=== PATIENT | female | born 2000 | race Caucasian/White ===

== ENCOUNTER 2018-09-20 21:24 | Observation (INO) | payer OTHER ==
[~2018-09-20] VITALS: Ht 172.7 cm; Wt 70.3 kg
[~2018-09-20 21:24] MED LIST changes: -ACYC-50 PO; -STEROID EYE DROPS; -SUMA100T33 PO
[2018-09-20] MEDS ORDERED: SUMA100T33 PO (21:38)
--- NOTE | 2018-09-20 21:39 | ER Report ---
History and Physical Time Seen By MD: 21:38 Hx. of Stated Complaint: 1 MIN TONIC CLONIC SEIZURE, PT ALERT AND ORIENTED, HAS HAD A BAD MIGRAINE SINCE WAKING UP TODAY HPI/ROS CHIEF COMPLAINT: seizure, headache HISTORY OF PRESENT ILLNESS: This is a 18 year old female. She had an episode while working tonight at the [employer] gym at the [facility]. She lost consciousness, fell and had about 1 minute of tonic-clonic movements. She awoke and knew she was at the [employer], but did not know what happened. She has had a headache all day. She described this as a typical migraine pattern. She took her Imitrex, but did not help. She has a history of migraines, but not frequent. This was worse than usual for her. She has had cold symptoms for a few weeks, with runny nose and cough, not worse today than the last few days. Denies shortness of breath. Denies fevers or chills. Denies headache. No loss of bladder or bowel control with the event and denies dysuria. Denies diarrhea. She does have some generalized weakness, which seems worse in both arms. No focal numbness or weakness. She denies vision changes today. She has been lightheaded/dizzy off and on today, worsened this evening. Allergies: Coded Allergies: amoxicillin (Verified Allergy, Intermediate, DIARRHEA/NAUSEA/HIVES, 10/11/17) clavulanic acid (Verified Allergy, Intermediate, DIARRHEA/NAUSEA/HIVES, 10/11/17) erythromycin base (Verified Allergy, Intermediate, DIARRHEA/NAUSEA, 10/11/17) sulfisoxazole (Verified Allergy, Intermediate, DIARRHEA/NAUSEA, 10/11/17) Home Meds Reported Medications [Steroid Eye Drops] No Conflict Check 09/21/18 Sumatriptan Succinate (SUMATRIPTAN SUCCINATE) 100 Mg Tablet, 100 MG PO ONCE 09/20/18 [Teva] No Conflict Check, 1 TAB PO QDAY 10/11/17 Discontinued Scripts Diclofenac Sodium (DICLOFENAC SODIUM) 75 Mg Tablet., 75 MG PO BID, #20 TAB Prov:BERTA BASHIR 10/11/17 Reviewed Nurses Notes: Yes Hx Substance Use Disorder: No Hx Alcohol Use: Yes (OCC) Constitutional Vital Sign - Last 24 Hours 09/20/18 09/20/18 09/20/1809/20/18 21:24 21:26 21:27 21:39 Temp 99.8 Pulse ??? 101 95 Resp 16 17 B/P (MAP) 169/118 (135) 169/118 Pulse Ox 95 94 O2 Delivery Room Air 09/20/18 09/20/18 09/20/18 09/20/18 21:40 21:54 21:57 21:58 Pulse ??? B/P (MAP) 144/103 (117) 150/107 (121) 150/108 (122) 09/20/18 09/20/18 09/20/18 09/20/18 21:59 22:02 22:03 22:04 Pulse 89 89 98 Resp 20 20 20 B/P (MAP) 156/112 (127) 150/107 (121) 150/108 (122) 156/112 (127) Pulse Ox 91 93 92 O2 Delivery Room Air Room Air Room Air 09/20/18 09/20/18 09/20/18 09/20/18 22:09 22:24 22:39 22:40 Pulse 93 ??? 96 Resp 10 11 B/P (MAP) 153/110 (124) Pulse Ox 91 92 09/20/18 09/20/18 09/20/18 09/20/18 22:54 23:00 23:09 23:20 Pulse 89 93 Resp 17 15 B/P (MAP) 147/116 (126) 152/101 (118) Pulse Ox 96 95 09/20/18 09/20/18 09/20/18 09/21/18 23:25 23:40 23:55 00:00 Pulse ??? 103 85 Resp 15 12 B/P (MAP) 149/95 (113) 131/62 (85) Pulse Ox 95 94 09/21/18 09/21/18 09/21/18 00:10 00:20 00:28 Temp 98.2 Pulse 85 Resp 12 B/P (MAP) 130/90 (103) Pulse Ox 94 Intake and Output 09/20/18 09/20/18 09/21/18 15:00 23:00 07:00 Intake Total 1000 ml Balance 1000 ml Physical Exam General Appearance: The patient is alert. No acute distress. Non-toxic in appearance. Eyes: Pupils are equal, round. Reactive to light. No pallor, injection or icterus. Extraocular movements are intact. ENT: Mucous membranes are moist. Normal oral mucosa. Posterior oropharynx has mild erythema, but no exudates or hypertrophy. Nasal mucosa with mild erythema and mucous. Normal tympanic membranes and canals. Neck: Supple and non tender. No lymphadenopathy. Respiratory: Lungs are clear to auscultation. Cardiovascular: Regular rate and rhythm. No murmurs, gallops or rubs. Normal capillary refill. Gastrointestinal: Abdomen is soft and non tender. Nondistended. Normal active bowel sounds. No costovertebral angle tenderness with percussion. Neurological: Alert and oriented x3. Cranial nerves II through XII show no acute deficits on my exam. No focal neurologic deficits in the extremities. Skin: Warm and dry. No rashes. Musculoskeletal: Extremities are nontender. No tenderness in palpation of the cervical, thoracic and lumbar spine. DIFFERENTIAL DIAGNOSIS: After history and physical exam, differential diagnosis was considered for headache, recent cold symptoms, and tonight an episode that sounds like syncope with convulsions, but cannot entirely rule out seizure. No history of seizures in the past. Could be migraine with syncope, but worry about the possibility of meningitis or bleeding. Medical Decision Making Data Points Result Diagram: 09/20/18211909/20/182119 Laboratory Hematology Test 09/20/18 21:20 09/20/18 21:54 09/20/18 23:46 Red Blood Count 5.54 M/uL (4.17-5.56) Mean Corpuscular Volume 89.6 fL (80.0-96.0) Mean Corpuscular Hemoglobin 30.8 pg (26.0-33.0) Mean Corpuscular Hemoglobin Concent 34.4 g/dL (32.0-36.0) Red Cell Distribution Width 12.6 % (11.5-14.5) Mean Platelet Volume 9.0 fL (7.2-11.1) Neutrophils (%) (Auto) 49.2 % (39.4-72.5) Lymphocytes (%) (Auto) 39.5 % (17.6-49.6) Monocytes (%) (Auto) 7.9 % (4.1-12.4) Eosinophils (%) (Auto) 2.3 % (0.4-6.7) Basophils (%) (Auto) 1.1 % (0.3-1.4) Nucleated RBC Relative Count (auto) 0.1 /100WBC Neutrophils # (Auto) 5.0 K/uL (2.0-7.4) Lymphocytes # (Auto) 4.0 K/uL (1.3-3.6) Monocytes # (Auto) 0.8 K/uL (0.3-1.0) Eosinophils # (Auto) 0.2 K/uL (0.0-0.5) Basophils # (Auto) 0.1 K/uL (0.0-0.1) Nucleated RBC Absolute Count (auto) 0.01 K/uL Erythrocyte Sedimentation Rate 7 mm/HOUR (0-20) Sodium Level 138 mmol/L (137-145) Potassium Level 3.8 mmol/L (3.5-5.0) Chloride Level 103 mmol/L (98-107) Carbon Dioxide Level 21 mmol/L (22-31) Blood Urea Nitrogen 12 mg/dl (7-18) Creatinine 1.00 mg/dl (0.52-1.04) Glomerular Filtration Rate Calc > 60.0 Random Glucose 122 mg/dl (75-110) Calcium Level 9.7 mg/dl (8.4-10.2) Total Bilirubin 0.3 mg/dl (0.2-1.3) Aspartate Amino Transf (AST/SGOT) 22 U/L (0-35) Alanine Aminotransferase (ALT/SGPT) 25 U/L (0-56) Alkaline Phosphatase 61 U/L (0-126) C-Reactive Protein < 0.5 mg/dl (<1.0) Total Protein 8.5 g/dl (6.3-8.2) Albumin 4.7 g/dl (3.5-5.0) Human Chorionic Gonadotropin, Qual Negative (NEGATIVE) Urine Color Straw Urine Clarity Clear Urine pH 7.0 pH (4.8-9.5) Urine Specific [place] 1.002 Urine Protein Negative mg/dL (NEGATIVE) Urine Glucose (UA) Negative mg/dL (NEGATIVE) Urine Ketones Negative mg/dL (NEGATIVE) Urine Blood Small (NEGATIVE) Urine Nitrite Negative (NEGATIVE) Urine Bilirubin Negative (NEGATIVE) Urine Urobilinogen Negative mg/dL (0.2-1.9) Urine Leukocyte Esterase Negative (NEGATIVE) Urine RBC 3 /HPF (0-2/HPF) Urine WBC 3 /HPF (0-5/HPF) Urine Squamous Epithelial Cells Many /LPF (</=FEW) Urine Bacteria Few /HPF (NONE-FEW) Urine Mucus None /HPF (NONE-FEW) Body Fluid WBC 11 Body Fluid RBC 321 CSF Appearance Clear (CLEAR) CSF Color Colorless (COLORLESS) CSF WBC 32 /mm3 (0-5) CSF RBC 411 /mm3 CSF Glucose 53 mg/dl CSF Total Protein 30 mg/dl (15-50) Haemophilus influenzae B Antigen Negative (NEGATIVE) Neisseria meningitidis A/Y Antigen Negative (NEGATIVE) Neisseria meningitidis C/W135 Ag Negative (NEGATIVE) N. meningitidis B/E.coli K1 Ag Negative (NEGATIVE) Group B Streptococcus Antigen Negative (NEGATIVE) Streptococcus pneumoniae Antigen Negative (NEGATIVE) Chemistry Test 09/20/18 21:20 09/20/18 21:54 09/20/18 23:46 White Blood Count 10.1 k/uL (4.5-11.0) Red Blood Count 5.54 M/uL (4.17-5.56) Hemoglobin 17.1 g/dL (12.0-16.0) Hematocrit 49.6 % (34.0-47.0) Mean Corpuscular Volume 89.6 fL (80.0-96.0) Mean Corpuscular Hemoglobin 30.8 pg (26.0-33.0) Mean Corpuscular Hemoglobin Concent 34.4 g/dL (32.0-36.0) Red Cell Distribution Width 12.6 % (11.5-14.5) Platelet Count 364 K/uL (150-450) Mean Platelet Volume 9.0 fL (7.2-11.1) Neutrophils (%) (Auto) 49.2 % (39.4-72.5) Lymphocytes (%) (Auto) 39.5 % (17.6-49.6) Monocytes (%) (Auto) 7.9 % (4.1-12.4) Eosinophils (%) (Auto) 2.3 % (0.4-6.7) Basophils (%) (Auto) 1.1 % (0.3-1.4) Nucleated RBC Relative Count (auto) 0.1 /100WBC Neutrophils # (Auto) 5.0 K/uL (2.0-7.4) Lymphocytes # (Auto) 4.0 K/uL (1.3-3.6) Monocytes # (Auto) 0.8 K/uL (0.3-1.0) Eosinophils # (Auto) 0.2 K/uL (0.0-0.5) Basophils # (Auto) 0.1 K/uL (0.0-0.1) Nucleated RBC Absolute Count (auto) 0.01 K/uL Erythrocyte Sedimentation Rate 7 mm/HOUR (0-20) Glomerular Filtration Rate Calc > 60.0 Calcium Level 9.7 mg/dl (8.4-10.2) Total Bilirubin 0.3 mg/dl (0.2-1.3) Aspartate Amino Transf (AST/SGOT) 22 U/L (0-35) Alanine Aminotransferase (ALT/SGPT) 25 U/L (0-56) Alkaline Phosphatase 61 U/L (0-126) C-Reactive Protein < 0.5 mg/dl (<1.0) Total Protein 8.5 g/dl (6.3-8.2) Albumin 4.7 g/dl (3.5-5.0) Human Chorionic Gonadotropin, Qual Negative (NEGATIVE) Urine Color Straw Urine Clarity Clear Urine pH 7.0 pH (4.8-9.5) Urine Specific [place] 1.002 Urine Protein Negative mg/dL (NEGATIVE) Urine Glucose (UA) Negative mg/dL (NEGATIVE) Urine Ketones Negative mg/dL (NEGATIVE) Urine Blood Small (NEGATIVE) Urine Nitrite Negative (NEGATIVE) Urine Bilirubin Negative (NEGATIVE) Urine Urobilinogen Negative mg/dL (0.2-1.9) Urine Leukocyte Esterase Negative (NEGATIVE) Urine RBC 3 /HPF (0-2/HPF) Urine WBC 3 /HPF (0-5/HPF) Urine Squamous Epithelial Cells Many /LPF (</=FEW) Urine Bacteria Few /HPF (NONE-FEW) Urine Mucus None /HPF (NONE-FEW) Body Fluid WBC 11 Body Fluid RBC 321 CSF Appearance Clear (CLEAR) CSF Color Colorless (COLORLESS) CSF WBC 32 /mm3 (0-5) CSF RBC 411 /mm3 CSF Glucose 53 mg/dl CSF Total Protein 30 mg/dl (15-50) Haemophilus influenzae B Antigen Negative (NEGATIVE) Neisseria meningitidis A/Y Antigen Negative (NEGATIVE) Neisseria meningitidis C/W135 Ag Negative (NEGATIVE) N. meningitidis B/E.coli K1 Ag Negative (NEGATIVE) Group B Streptococcus Antigen Negative (NEGATIVE) Streptococcus pneumoniae Antigen Negative (NEGATIVE) Urinalysis Test 09/20/18 21:54 Urine Color Straw Urine Clarity Clear Urine pH 7.0 pH (4.8-9.5) Urine Specific [place] 1.002 Urine Protein Negative mg/dL (NEGATIVE) Urine Glucose (UA) Negative mg/dL (NEGATIVE) Urine Ketones Negative mg/dL (NEGATIVE) Urine Blood Small (NEGATIVE) Urine Nitrite Negative (NEGATIVE) Urine Bilirubin Negative (NEGATIVE) Urine Urobilinogen Negative mg/dL (0.2-1.9) Urine Leukocyte Esterase Negative (NEGATIVE) Urine RBC 3 /HPF (0-2/HPF) Urine WBC 3 /HPF (0-5/HPF) Urine Squamous Epithelial Cells Many /LPF (</=FEW) Urine Bacteria Few /HPF (NONE-FEW) Urine Mucus None /HPF (NONE-FEW) Microbiology Microbiology Date/Time Source Procedure Growth Status 09/20/18 23:46 Cerebrospinal Fluid Gram Stain - Final Resulted 09/20/18 23:46 Cerebrospinal Fluid CSF Culture Pending Resulted EKG/Imaging Imaging EXAMINATION: CT Head without intravenous contrast HISTORY: Headache. Seizure. TECHNIQUE: Axial images were obtained from the skull base to the vertex without intravenous contrast. Sagittal and coronal reformatted images are also submitted. One of the following dose optimization techniques was utilized in the performance of this exam: Automated exposure control; adjustment of the mA and/or kV according to the patient's size; or use of an iterative reconstruction technique. Specific details can be referenced in the facility's radiology CT exam operational policy. COMPARISON: None available. FINDINGS: Brain volume: Normal. Ventricles: Negative. Acute ischemic changes: None. Hemorrhage: None. Masses / edema: None. Edmonds-white: Negative. White matter: Negative. Vessels: Negative. Extra-axial: Negative. Calvarium / skull base: Negative. Visualized sinuses / orbits: Negative. IMPRESSION: Normal noncontrast head CT. Report Dictated By: Julio César Azul MD at 09/20/2018 10:50 PM ED Course/Re-evaluation Clinical Indication for ER IV: Hydration, IV Access ED Course After the initial evaluation, it sounded like the patient had a syncopal episode with convulsions rather than an epileptic event. She has had the viral symptoms, and concern with all of these together would be a viral meningitis. Labs are fairly unremarkable. Head CT is negative. Discussed these results with the patient and her family. At this point we went ahead and did a lumbar puncture. Fluid was clear and opening pressure was normal. Normal glucose and protein however the CSF white blood cells and red blood cells were both elevated. This is concerning for a viral meningitis picture. Discussed this with the family as well and also with our hospitalist, Dr. Holly, and decided on admitting the hospital for observation. Procedure Procedure: Lumbar puncture. Indication: Headache, viral upper respiratory infection, syncope with convulsi ons After verbal informed consent from patient explaining the risks including infection, bleeding, and neurologic damage, a lumbar puncture was performed after the patient was prepped and draped in the usual fashion. The back was anesthetized with 1% lidocaine. Approximately 4 cc of clear fluid was obtained. Opening pressure was 32. The patient had significant pressure and pain as the needle approached the spinal canal and has local pain in the area since then. The procedure was performed by myself. Decision to Disposition Date: Sep 21, 2018 Decision to Disposition Time: 02:04 Depart Departure Latest Vital Signs Vital Signs Date Time Temp Pulse Resp B/P (MAP) Pulse Ox O2 Delivery O2 Flow Rate FiO2 09/21/18 00:28 98.2 09/21/18 00:20 130/90 (103) 09/21/18 00:10 85 12 94 09/20/18 22:04 Room Air Impression: Primary Impression: Viral meningitis Condition: Improved Disposition: Admitted from [facility] MD Sep 20, 2018 21:38
[2018-09-20] MEDS ORDERED: NS(*) 0.9% 1000 ML BAG 1,000 ML IV ONE (21:45)
[2018-09-20 21:54] LABS: PLATELET COUNT, AUTOMATED 364 K/uL (150-450)
--- NOTE | 2018-09-20 22:55 | RADIOLOGY IMAGING REPORT ---
[place] [facility] [place] Rosalind Peralta : 2000 MR: [id number] V: [id number] EXAM DATE: ORDERING PHYSICIAN: HANNAH COLEY TECHNOLOGIST: Location: [facility] Patient: Rosalind Peralta : 2000 Visit/Account:[id number] Date of Sevice: 09/20/2018 EXAMINATION: CT Head without intravenous contrast HISTORY: Headache. Seizure. TECHNIQUE: Axial images were obtained from the skull base to the vertex without intravenous contrast . Sagittal and coronal reformatted images are also submitted. One of the following dose optimization techniques was utilized in the performance of this exam: Autom ated exposure control; adjustment of the mA and/or kV according to the patient's size; or use of an i terative reconstruction technique. Specific details can be referenced in the facility's radiology C T exam operational policy. COMPARISON: None available. FINDINGS: Brain volume: Normal. Ventricles: Negative. Acute ischemic changes: None. Hemorrhage: None. Masses / edema: None. Edmonds-white: Negative. White matter: Negative. Vessels: Negative. Extra-axial: Negative. Calvarium / skull base: Negative. Visualized sinuses / orbits: Negative. IMPRESSION: Normal noncontrast head CT. Report Dictated By: Julio César Azul MD at 09/20/2018 10:50 PM Report E-Signed By: Julio César Azul MD at 09/20/2018 10:53 PM [id number]
[2018-09-20] MEDS ORDERED: KETOROLAC 30 MG/ML VIAL IVP ONE (23:15)
[2018-09-20] MEDS ORDERED: ONDANSETRON 4 MG/2 ML VIAL ONE (23:47)
[2018-09-21] MEDS ORDERED: diphenhydrAMINE 50 MG/ML VIAL IVP ONE (00:55)
[2018-09-21] MEDS ORDERED: PROMETHAZINE 25 MG/ML 1 ML AMP IVP ONE (00:55)
[2018-09-21] MEDS ORDERED: MORPHINE 2 MG/ML SYR IVP ONE (00:55)
[2018-09-21] MEDS ORDERED: STEROID EYE DROPS (01:50)
[2018-09-21 03:08] VITALS: BP 130/86
[2018-09-21] MEDS ORDERED: NS(*) 0.9% 1000 ML BAG 1,000 ML IV PRN (03:13)
[2018-09-21] MEDS ORDERED: ONDANSETRON 4 MG/2 ML VIAL IVP PRN (03:15)
[2018-09-21] MEDS ORDERED: INFLUENZA VIRUS VAC 0.5ML SYR IM ONLY ONE (03:15)
[2018-09-21] MEDS ORDERED: FLUSH 10 ML SYR IVP PRN (03:15)
--- NOTE | 2018-09-21 03:39 | History & Physical ---
History of Present Illness Chief Complaint headache, syncopal episode History of Present Illness 18F presented to [facility] after experiencing syncopal episode and having continued headache all day. Reports migraine that was typical for her but was unresponsive to Imitrex since this am. Today at work while standing had loss of consciousness and tonic clonic movements before regaining consciousness. No post ictal period, reports recent cold like symptoms, good PO intake. No previous episodes of presyncope or syncope. She notes 6 week history of conjunctival injection in bilateral eyes. LP performed in ER out of concern for meningitis. History Problems: (1) Migraine Home Meds Reported Medications [Steroid Eye Drops] No Conflict Check 09/21/18 Sumatriptan Succinate (SUMATRIPTAN SUCCINATE) 100 Mg Tablet, 100 MG PO ONCE 09/20/18 [Teva] No Conflict Check, 1 TAB PO QDAY 10/11/17 Discontinued Scripts Diclofenac Sodium (DICLOFENAC SODIUM) 75 Mg Tablet., 75 MG PO BID, #20 TAB Prov:BERTA BASHIR [employer]PER[employer] 10/11/17 Allergies: Coded Allergies: amoxicillin (Verified Allergy, Intermediate, DIARRHEA/NAUSEA/HIVES, 10/11/17) clavulanic acid (Verified Allergy, Intermediate, DIARRHEA/NAUSEA/HIVES, 10/11/17) erythromycin base (Verified Allergy, Intermediate, DIARRHEA/NAUSEA, ) sulfisoxazole (Verified Allergy, Intermediate, DIARRHEA/NAUSEA, 10/11/17) Patient History: FH: HTN (hypertension) Hx Smoking: No Hx Alcohol Use: Yes (OCC) Hx Substance Use Disorder: No Review of Systems All Systems Reviewed/Normal: Yes, Except as Noted Neurological: Syncope, Other (headache) Eyes: Other (injection) Exam Vital Signs Vital Signs Date Time Temp Pulse Resp B/P (MAP) Pulse Ox O2 Delivery O2 Flow Rate FiO2 09/21/18 03:08 98.4 84 16 130/86 (101) 93 Room Air General Appearance: Alert, Awake, No Acute Distress, Afebrile Neuro: No Gross deficits Eyes: PERRLA (conjunctival injection) ENT: Normal Cardiovascular: Normal Rhythm & Peripheral Pulses Respiratory: No Respiratory Distress GI: Abd Soft and Non-Tender Musculoskeletal: No Weakness/Pain Extremities: Soft and Non Tender, Warm, Pulses, Perfused Integumentary: Skin Intact without Lesion / Mass Psych: Alert & Oriented X3 Medical Decision Making Data Points Result Diagram: 11/19/18 2120 11/19/18 2120 Assessment and Plan Problems: (1) Viral meningitis Status: Acute Assessment & Plan: LP with mildly elevated WBC otherwise normal. Culture pending, gram stain and PCR negative. No meningeal signs, no previous antibiotics, no fever. Will monitor off antibiotics with very low threshold to initiate. (2) Syncope Assessment & Plan: Likely vasovagal given history of event. Will monitor on telemetry to evaluate for arrhythmias. Negative orthostatics. (3) Migraine Assessment & Plan: Takes PRN Imitrex. Venous Thromboembolism Antithrombotics Is Pt On Any Antithrombotics?: No (early ambulation) Exam Sepsis Risk: No Definite Risk VILLAFANA BIANKA MALDONADO DO Sep 21, 2018 03:39
[2018-09-21] MEDS: ACETAMINOPHEN 325 MG TAB PO PRN ×2 (03:51→11:05)
[2018-09-21 08:13] VITALS: BP 126/72
[2018-09-21 11:07] VITALS: BP 117/75
[2018-09-21 12:34] VITALS: Ht 172.7 cm; Wt 70.3 kg
[2018-09-21] MEDS ORDERED: SUMAtriptan SUCC 25MG TAB PO PRN (14:05)
[2018-09-21] MEDS ORDERED: ACYC-50 PO (15:11)
[2018-09-21] MEDS ORDERED: ACYCLOVIR 200 MG CAP PO ONE (15:30)
--- NOTE | 2018-09-21 15:37 | Hospitalist Depart ---
Discharge Summary Reason for Hosp/Final Diag: (1) Viral meningitis Status: Acute Hospital Course & Plan: She presented with a day long headache and a syncopal episode. She has had a cough and coryza for a few days. LP with mildly elevated WBC otherwise normal. Culture pending. Antigen study and gram stain negative. No meningeal signs, no previous antibiotics, no fever. I spoke with Dr. Garza who thought it was a likely an enterovirus meningitis. He did recommend acyclovir treatment until the HSV testing comes back negative. If it is positive, then she will need for a total of 14-21 days. Another possibility is that the patient's 6 weeks of conjunctivitis could be causing the elevated WBC in the CSF or she could have an autoimmune etiology for both. (2) Syncope Hospital Course & Plan: Likely vasovagal given history of event. Negative orthostatics. No problems since admission. No arrhythmias on telemetry. (3) Migraine Hospital Course & Plan: Takes PRN Imitrex. (4) Conjunctivitis Status: Chronic Hospital Course & Plan: Bilateral injected sclera with eye pain for about 6 weeks. Steroid eye drops help the symptoms, but haven't resolved the problem. One consideration is an autoimmune etiology. I have recommended that she speak with [facility] about it and possibly see Ophthalmology and/or Rheumatology. CRP and ESR are wnl and she has no joint pain/swelling, mouth sores or rashes. Departure Weight (Pounds): 155 Result Diagram: 09/20/18211909/20/182119 Item Value Date Time Erythrocyte Sedimentation Rate 7 mm/HOUR 09/20/182119 Neutrophils (%) (Auto) 49.2 % 09/20/182119 Lymphocytes (%) (Auto) 39.5 % 09/20/182119 Monocytes (%) (Auto) 7.9 % 09/20/182119 Eosinophils (%) (Auto) 2.3 % 09/20/182119 Nucleated RBC Relative Count (auto) 0.1 /100WBC 09/20/182119 Basophils (%) (Auto) 1.1 % 09/20/182119 Lymphocytes # (Auto) 4.0 K/uL H 09/20/182119 Neutrophils # (Auto) 5.0 K/uL 09/20/182119 Human Chorionic Gonadotropin, Qual Negative 09/20/182119 C-Reactive Protein < 0.5 mg/dl 09/20/182119 Total Bilirubin 0.3 mg/dl 09/20/182119 Aspartate Amino Transf (AST/SGOT) 22 U/L 09/20/182119 Alanine Aminotransferase (ALT/SGPT) 25 U/L 09/20/182119 CSF Color Colorless 09/20/18 2346 CSF WBC 32 /mm3 H 09/20/18 2346 CSF RBC 411 /mm3 09/20/18 2346 CSF Glucose 53 mg/dl 09/20/18 2346 CSF Total Protein 30 mg/dl 09/20/18 2346 Body Fluid WBC 11 09/20/18 2346 Body Fluid RBC 321 09/20/18 2346 Haemophilus influenzae B Antigen Negative 09/20/182345 Neisseria meningitidis A/Y Antigen Negative 09/20/182345 Neisseria meningitidis C/W135 Ag Negative 09/20/18 234 N. meningitidis B/E.coli K1 Ag Negative 09/20/18 2346 Group B Streptococcus Antigen Negative 09/20/18 2346 Streptococcus pneumoniae Antigen Negative 09/20/18 2346 Urine RBC 3 /HPF 09/20/18 2154 Urine WBC 3 /HPF 09/20/18 2154 Urine Squamous Epithelial Cells Many /LPF H 09/20/182153 Urine Bacteria Few /HPF 09/20/182153 Urine Mucus None /HPF 09/20/182153 Urine Blood Small 09/20/182153 Alkaline Phosphatase 61 U/L 09/20/182119 SPEC #: [id number] VARINDER: 09/21/188 STATUS: RES REQ #: [id number] RECD: 09/21/180246 [facility] DR: HANNAH COLEY MD SOURCE: BLOOD ENTR: 09/21/182 [facility] DR: CHON BOONE MD [facility]: ORDERED: CULT BLOOD Procedure Result Verified BLOOD CULTURE Preliminary 09/21/18 NO GROWTH SO FAR, SET LATE. REINCUBATED SPEC #: [id number] VARINDER: 09/21/18 STATUS: RES REQ #: [id number] RECD: 09/21/[address]: HANNAH COLEY MD SOURCE: BLOOD ENTR: 09/21/[address]: CHON BOONE MD [facility]: ORDERED: CULT BLOOD Procedure Result Verified BLOOD CULTURE Preliminary 09/21/18 NO GROWTH SO FAR, SET LATE. REINCUBATED SPEC #: [id number] VARINDER: 09/20/18 STATUS: RES REQ #: [id number] RECD: 09/20/[address]: HANNAH COLEY MD SOURCE: CSF ENTR: 09/20/[address]: CHON BOONE MD [facility]: ORDERED: CULT CSF & GS Procedure Result Verified GRAM STAIN Final 09/21/18-0213 NO WHITE BLOOD CELLS NO ORGANISMS SEEN CSF CULTURE Preliminary 09/21/18-1244 NO GROWTH SO FAR, SET LATE. REINCUBATED Imaging 09/20/[address] - Normal noncontrast head CT. Condition: Improved Discharge: Home Discharge Instructions Home Meds Active Scripts Acyclovir (ACYCLOVIR) 400 Mg Tablet, 400 MG PO 5XD, #20 TAB Prov:JOYCE LOPZE MD 09/21/18 Reported Medications [Steroid Eye Drops] No Conflict Check 09/21/18 Sumatriptan Succinate (SUMATRIPTAN SUCCINATE) 100 Mg Tablet, 100 MG PO Q2H PRN for migraine 09/20/18 Discontinued Scripts Diclofenac Sodium (DICLOFENAC SODIUM) 75 Mg Tablet., 75 MG PO BID, #20 TAB Prov:BERTA BASHIR 10/11/17 Diet: Regular Activity: As Tolerated Special Instructions: Go to the ER for fevers, chills, passing out, neck stiffness/pain, or seizures. Check the patient portal starting tomorrow afternoon to see if the Herpes Simplex Virus (HSV) test is back. If it is negative, stop the acyclovir. If it is positive, then you will need acyclovir for a total of 14-21 days, so follow up with your PCP, then. Venous Thromboembolism Antithrombotics Is Pt On Any Antithrombotics?: No (early ambulation) JOYCE LOPEZ MD Sep 21, 2018 15:37
[2018-09-21 15:38] VITALS: BP 119/74
== END 2018-09-21 15:38 | disposition home or self-care (01) ==
LOC: ER 21:29 → INTOOBSV 09-21 02:21 → MED 09-21 02:21
PROVIDERS: ADMIT Internal Medicine; ATTEND Internal Medicine
DX: A87.9 Viral meningitis, unspecified (principal); R55 Syncope and collapse; G43.909 Migraine, unspecified, not intractable, without status migrainosus; H10.9 Unspecified conjunctivitis; Z88.8 Allergy status to other drugs, medicaments and biological substances; Z88.2 Allergy status to sulfonamides; Z88.0 Allergy status to penicillin
CPT/HCPCS: 36415; 62270; 70450; 81001; 82945; 84157; 84703; 85025; 85651; 86140; 87040; 87070; 87088; 87205; 87529; 87899; 89050; 96361; 96374; 96375; 99284; G0378; J1200; J1885; J2270; J2405; J2550; J7030; 82040; 82247; 82310; 82374; 82435; 82565; 82947; 84075; 84132; 84155; 84295; 84450; 84460; 84520

== ENCOUNTER → 2018-09-20 | Outpatient (CLI) | payer OTHER ==
[~2018-09-20] MED LIST: ACYC-50 PO; DICL-195 PO; STEROID EYE DROPS; SUMA100T33 PO; TEVA PO
[2018-09-21 12:34] VITALS: BMI 23.6
== END ==
LOC: AMB 21:04
PROVIDERS: ATTEND Nurse Practitioner
DX: R56.9 Unspecified convulsions (principal); R53.83 Other fatigue
CPT/HCPCS: A0425; A0427